=== PATIENT | female | born 1980 | race Caucasian/White ===

== ENCOUNTER 2018-12-01 20:05 | Emergency (ER) | payer BC ==
[~2018-12-01] VITALS: Ht 160 cm; Wt 77.3 kg
[2018-12-01 20:22] VITALS: BP 126/75; TEMP 98
[2018-12-01] MEDS ORDERED: CONCEPT DHA1 CAP PO (21:30)
[2018-12-02 00:42] LABS: BASO % 0.3 % (0.0-2.0); EOS # 0.2 (0.0-0.7); EOS % 3.3 % (0-4.0); GRAN # 4.2 (1.4-6.5); GRAN % 62.9 % (42.2-75.2); HEMOGLOBIN 12.3 g/dl (12.5-16.0); LYMPH # 1.7 (1.2-3.4); LYMPH % 24.7 % (20.0-51.0); MEAN CELL VOLUME 90 fl (80.0-100.0); MEAN CORPUSCULAR HEMOGLOBIN 30 pg (27.0-31.0); MEAN CORPUSCULAR HGB CONC 34 g/dl (33.0-37.0); MEAN PLATELET VOLUME 8.3 fl (7.4-10.4); MONO # 0.5 (0.1-0.6); MONO % 7.9 % (1.7-9.3); PLATELET COUNT 227 K/mm3 (130-400); RED BLOOD COUNT 4.06 M/mm3 (4.10-5.30); REDCELL DISTRIBUTION WIDTH-CV 12.7 % (11.5-14.5)
[2018-12-02 00:48] LABS: HEMATOCRIT 36.4 % (37.0-47.0)
[2018-12-02 00:58] LABS: ALANINE AMINOTRANSFERASE 23 U/L (9-52); ALBUMIN 3.2 gm/dL (3.5-5.0); ALKALINE PHOSPHATASE 84 U/L (50-136); ANION GAP 6 mmol/L (7-16); AST,SGOT 25 U/L (15-37); BILIRUBIN,TOTAL 0.6 mg/dL (0.0-1.0); BLOOD UREA NITROGEN 7 mg/dL (7-17); CALCIUM 8.9 mg/dL (8.4-10.2); CARBON DIOXIDE 25 mmol/L (22-30); CHLORIDE 105 mmol/L (98-107); CREATININE, serum 0.54 mg/dL (0.52-1.25); GLUCOSE 114 mg/dL (74-106); LIPASE 73 U/L (23-300); POTASSIUM 4.2 mmol/L (3.4-5.0); SODIUM 136 mmol/L (137-145); TOTAL PROTEIN 6.3 gm/dL (6.4-8.2)
[2018-12-02 01:11] LABS: TROPONIN-I < 0.012 ng/mL (0.000-0.035)
[2018-12-02 01:15] VITALS: PULSE 83
== END 2018-12-02 01:15 | disposition home or self-care (01) ==
LOC: COL.ER 20:05
PROVIDERS: Physician Assistant
DX: O26.893 Other specified pregnancy related conditions, third trimester (principal); M94.0 Chondrocostal junction syndrome [Tietze]; Z3A.33 33 weeks gestation of pregnancy

== ENCOUNTER 2019-01-17 06:24 | Inpatient (IN) | payer BC ==
[~2019-01-17] VITALS: Ht 160 cm; Wt 79.5 kg
[2019-01-17] VITALS (42 sets, daily range): BP systolic 105–157; BP diastolic 68–93; PULSE 16–106; TEMP 97.9–99.9
[~2019-01-17 06:24] MED LIST: CONCEPT DHA1 CAP PO
--- NOTE | 2019-01-17 07:00 | NUR ---
FHR baseline 100-115bpm. Dr Albright calls and orders to proceed as pitocin induction. Plan of care discussed and patient understands agrees. Consents gone over and assessment completed. 0705: Martha starts IV in left hand, unable to obtain blood/lab notified, LR infusing. 0730: SVE-2-3/60/-3
--- NOTE | 2019-01-17 07:55 | NUR ---
0758: FHR baseline 115-120bpm. FHR decreasing to 110bpm for approx. 2 minutes and returns to baseline. 0802: FHR decreasing to 110bpm for 80 seconds and returns to baseline. 0810: Dr Albright at bedside and evaluating patient and FHR strip. Patient supine and Sono done at this time and fetus in vertex position per Dr. Albright. 0815: SVE-2/60/-3 and AROM with clear fluid at this time. No new orders at this time. Will cotinue to monitor.
[2019-01-17 08:10] LABS: BASO % 0.6 % (0.0-2.0); EOS # 0.1 (0.0-0.7); EOS % 2.6 % (0-4.0); GRAN # 3.1 (1.4-6.5); GRAN % 58.6 % (42.2-75.2); HEMOGLOBIN 11.9 g/dl (12.5-16.0); LYMPH # 1.5 (1.2-3.4); MEAN CELL VOLUME 89 fl (80.0-100.0); MEAN CORPUSCULAR HEMOGLOBIN 30 pg (27.0-31.0); MEAN CORPUSCULAR HGB CONC 34 g/dl (33.0-37.0); MEAN PLATELET VOLUME 9.1 fl (7.4-10.4); MONO # 0.5 (0.1-0.6); MONO % 9.6 % (1.7-9.3); PLATELET COUNT 191 K/mm3 (130-400); RED BLOOD COUNT 3.99 M/mm3 (4.10-5.30); REDCELL DISTRIBUTION WIDTH-CV 13.6 % (11.5-14.5)
[2019-01-17 08:11] LABS: HEMATOCRIT 35.5 % (37.0-47.0)
--- NOTE | 2019-01-17 11:00 | NUR ---
Patient requesting epidural and [employer] notified. 1121: Patient off monitor to void. LR bolus started. 1126: Patient set up for procedure. [employer] at bedside for placement of epidural. 1136: Single shot given and patient tolerates well. 1140: Patient repositioned and will continue to monitor
--- NOTE | 2019-01-17 12:00 | NUR ---
1210: Patient comfortable with epidural. Ashton Catheter placed per Martha [facility], patient tolerates well. SVE-4-/-2 1215: Dr. Albright at bedside and SVE per physician /-2. Patient wedged left lateral with right leg resting in stirrup. Will continue to monitor.
[2019-01-17] MEDS ORDERED: MOTRIN 800800 MG/TAB PO (12:34)
--- NOTE | 2019-01-17 12:56 | NUR ---
FHR baseline 120bpm and during patient repositioning to right lateral position, FHR decreases to 110-115bpm for approx 2 min and returns to baseline. 1315: Dr Albright at [facility] and SVE per physician and orders to continue to increase pitocin at this time.
--- NOTE | 2019-01-17 14:10 | NUR ---
FHR baseline 120bpm and recurrent early decelerations noted, patient repositioned. 1420: FHR tracing variable decelerations. 1421: FHR decreasing with subtle late deceleration. Patient sat up and repositioned. 1450: FHR continues to have recurrent variable/early decelerations and patient repositioned. 1510: FHR showin recurrent late deceleration and patient wedged right. 1520: FHR baseline decreasing to 115 bpm with variable decelerations.
--- NOTE | 2019-01-17 15:55 | NUR ---
Dr. Albright calls back and states that she is on the way. 1600: Ashton catheter removed and patient tolerates well. 1602: Dr. Albright at bedside and patient begins to push with contraction. Bed taken apart and set up for vaginal delivery/pericare done. Patient continues to push with contractions. FHR 125bpm baseline and decreasing to 80-90bpm. 1609: Spontaneous vaginal delivery of head followed by body, infant bulb syringed and to mothers abdomen where Lyndsay HENRIQUEZ assumes care of . Cord blood obtained. Dr. Albright clamps cord and FOB cuts cord. 1611: Spontaneous delivery of placenta and pitocin bolus started per protocol. Fundal massage done/boggy/moderate bleeding, Fundus firms and bleeding decreases. Dr Albright repairs laceration at this time. Pericare done, Patient repositioned, ice pack to perineum. Patient has no needs at this time.
--- NOTE | 2019-01-17 16:45 | NUR ---
Fundal massage done and lemon size clot expelled with moderate bleeding, fundal firm and less bleeding noted. Will continue to monitor.
[2019-01-18 08:00] VITALS: BP 116/74; PULSE 80; TEMP 98.4
--- NOTE | 2019-01-18 09:21 | NUR ---
Initial visit; Patient thanked [employer] for offering congratulations and God's blessings for the of her son. [employer] thanked patient for choosing [facility].
[2019-01-18 16:07] VITALS: BP 124/68; PULSE 72; TEMP 98.1
== END 2019-01-18 17:30 | disposition home or self-care (01) | DRG 807 ==
LOC: LDR 06:24 → OB 16:53
PROVIDERS: ADMIT Obstetrics & Gynecology
PROC: 10E0XZZ Delivery of Products of Conception, External Approach (ICD-10-PCS; principal; 2019-01-17)
PROC: 3E033VJ Introduction of Other Hormone into Peripheral Vein, Percutaneous Approach (ICD-10-PCS; 2019-01-17)
DX: O75.89 Other specified complications of labor and delivery (principal); Z37.0 Single live birth; O70.1 Second degree perineal laceration during delivery; Z3A.39 39 weeks gestation of pregnancy
CPT/HCPCS: J2590; J2795; J7120

== ENCOUNTER → 2019-03-05 | Outpatient (CLI) | payer BC ==
[~2019-03-05] MED LIST changes: +MOTRIN 800800 MG/TAB PO
--- NOTE | 2019-03-05 12:19 | NUR ---
Skylar Chaudhari was sent over from Dr. Saleem's office to the outpatient clinic with 6 week old Alhaji for weight check and evaluation. Alhaji has lost weight between the dates of 02/21/19 and 03/03/19 (2 oz loss). Alhaji's weight ws 8 # 13 oz on 01/17/19. Today's prefeed weight was noted as 10# 11.1 oz. Skylar reports Alhaji to be eating 10-12 times per day, but is only nursing from one breast at a time. Diapers are WNL at this time. Skylar states she pumps very occasionally and Alhaji only recieves a bottle of formula or EBM when away from her. Skylar states took 2 oz formula via bottle approx 1.5 hours before coming into clinic; however, showing strong feeding cues when they presented to clinic. Alhaji nursed from both breasts for approx 10 min. each. Good latch, positioning, and audible swallows noted with a total of 60 g after nursing bilaterally. POC: Initiate 3 step feeding method of bilaterally, supplementing 1-2 oz EBM or formula, and pumping with each feeding to help increase 's intake and boost supply. Verbal and written education provided on process. Questions encouraged and answered. Understanding verbalized. Anicipate return to clinic next week.
== END ==
LOC: LAC 10:57
DX: Z39.1 Encounter for care and examination of lactating mother (principal); Z71.89 Other specified counseling

== ENCOUNTER → 2020-06-12 | Outpatient (CLI) | payer BC, OTHER | LOC: ZCOL.LAB 16:59 | DX: Z20.828 Contact with and (suspected) exposure to other viral communicable diseases (principal) ==

== ENCOUNTER → 2021-05-28 | Outpatient (CLI) | payer OTHER | LOC: MC.RAD 07:37 | DX: Z12.31 Encounter for screening mammogram for malignant neoplasm of breast (principal) ==

== ENCOUNTER → 2022-06-10 | Outpatient (CLI) | payer BC | LOC: MC.RAD 10:20 | DX: Z12.31 Encounter for screening mammogram for malignant neoplasm of breast (principal) ==